=== PATIENT | female | born 1975 | race American Indian/Alaskan Native ===

== ENCOUNTER 2021-04-17 18:27 | Emergency (ER) | payer SELFPAY ==
[2021-04-17 19:40] LABS: Basophils # (Auto) 0.1 K/mm3 (0.0-0.1); Basophils % (Auto) 0.5 % (0.0-1.8); Hemoglobin 15.8 gm/dl (10.1-14.3); Lymphocytes # (Auto) 1.3 K/mm3 (1.2-5.4); Mean Corpuscular HGB Conc 34 % (30-34); Mean Corpuscular Volume 95 fl (79-97); Monocytes # (Auto) 0.6 K/mm3 (0.0-0.8); Platelet Count 297 K/mm3 (140-440); Red Blood Count 4.84 M/mm3 (3.65-5.03); Red Cell Distribution Width 13.2 % (13.2-15.2)
[2021-04-17 19:56] LABS: Bilirubin,Urine NEG (Negative); Blood,Urine MOD (Negative); Color,Urine Yellow (Yellow); Mucus,Urine 2+ /HPF; Urobilinogen,Urine < 2.0 mg/dL (<2.0)
[2021-04-17 19:58] LABS: Protein,Urine >500 mg/dL (Negative)
[2021-04-17 20:00] LABS: Alanine Aminotransferase 26 units/L (7-56); Blood Urea Nitrogen 14 mg/dL (7-17); Calcium 9.2 mg/dL (8.4-10.2); Hemolysis Index 16
[2021-04-17 20:06] LABS: BUN/Creatinine Ratio 23
--- NOTE | 2021-04-17 20:58 | Emergency Department Report ---
ED Abdominal Pain HPI - General Chief Complaint: Abdominal Pain Stated Complaint: VOMITING PUI?: No Time Seen by Provider: 04/17/21 20:50 Source: patient Mode of arrival: Ambulatory Limitations: No Limitations - History of Present Illness Initial Comments: Patient is a 46-year-old female who comes emergency room with complaints of abdominal pain. Patient states her abdominal pain been going on for 1 day. Patient states 2 days ago she drank a lot of alcohol. Patient states he cannot hold anything down. Patient states she had vomiting for 1 day as well. Patient states is a burning sensation in her epigastric region. Patient states it radiates to her left upper quadrant. Patient denies fever and chills. Patient denies blood in vomitus. Patient denies diarrhea. Patient also complains of a headache. Patient states she is out of her blood pressure medication for 6 months. Patient states her blood pressure was high at home. Patient states her BP was 210/135 at home. Patient states it was high in triage here. Patient denies blurry vision. Patient denies neck stiffness. Patient denies chest pain. Patient denies shortness of breath. Patient denies recent travel. Patient denies recent international travel. Patient denies exposure to the novel coronavirus. Patient denies sick contacts. Patient denies fever and chills. Patient denies cough. Patient denies diarrhea. Patient denies coming in contact with anybody with symptoms of the novel coronavirus. MD Complaint: abdominal pain -: Sudden Location: epigastric Radiation: LUQ Migration to: no migration Severity: severe Severity scale (0 -10): 10 Quality: burning Consistency: constant Improves With: rest Worsens With: vomiting, movement Associated Symptoms: nausea, vomiting. denies: diarrhea, fever, chills, constipation, dysuria, hematemesis, hematochezia, melena, hematuria, anorexia, syncope - Related Data LMP (females 10-50): this week Previous Rx's Medication Instructions Recorded Last Taken Type Amlodipine Besylate [Norvasc] 5 mg PO BID 15 Days #30 tablet 04/17/21 Unknown Rx Esomeprazole Magnesium [NexIUM] 40 mg PO QDAY 30 Days #30 04/17/21 Unknown Rx capsule. Ondansetron [Zofran Odt] 4 mg PO Q6HR PRN #15 tab.rapdis 04/17/21 Unknown Rx ALPRAZolam [Xanax TAB] 0.5 mg PO BID PRN #8 tab 04/18/21 Unknown Rx Allergies Allergy/AdvReac Type Severity Reaction Status Date / Time codeine Allergy Hives Verified 04/17/21 19:16 phenobarbital Allergy Rash Verified 04/17/21 19:16 phenytoin [From Dilantin] Allergy Itching Verified 04/17/21 19:17 ED Review of Systems ROS: Stated complaint: VOMITING Other details as noted in HPI Constitutional: denies: chills, fever Eyes: denies: eye pain, eye discharge, vision change ENT: denies: ear pain, throat pain Respiratory: denies: cough, shortness of breath, wheezing Cardiovascular: denies: chest pain, palpitations Endocrine: no symptoms reported Gastrointestinal: as per HPI, abdominal pain, nausea, vomiting. denies: diarrhea Genitourinary: denies: urgency, dysuria, discharge Musculoskeletal: denies: back pain, joint swelling, arthralgia Skin: denies: rash, lesions Neurological: denies: headache, weakness, paresthesias Psychiatric: denies: anxiety, depression Hematological/Lymphatic: denies: easy bleeding, easy bruising ED Past Medical Hx - Past Medical History Previous Medical History?: Yes Hx Hypertension: Yes Hx Seizures: Yes - Surgical History Past Surgical History?: Yes Additional Surgical History: Left lumpectomy - Family History Family history: no significant - Social History Smoking Status: Never Smoker Substance Use Type: Alcohol, Marijuana - Medications Home Medications: Home Medications Medication Instructions Recorded Confirmed Last Taken Type Amlodipine Besylate [Norvasc] 5 mg PO BID 15 Days #30 tablet 04/17/21 Unknown Rx Esomeprazole Magnesium [NexIUM] 40 mg PO QDAY 30 Days #30 04/17/21 Unknown Rx capsule. Ondansetron [Zofran Odt] 4 mg PO Q6HR PRN #15 tab.rapdis 04/17/21 Unknown Rx ALPRAZolam [Xanax TAB] 0.5 mg PO BID PRN #8 tab 04/18/21 Unknown Rx ED Physical Exam - General Limitations: No Limitations General appearance: alert, in no apparent distress - Head Head exam: Present: atraumatic, normocephalic - Eye Eye exam: Present: normal appearance - ENT ENT exam: Present: mucous membranes moist - Neck Neck exam: Present: normal inspection - Respiratory Respiratory exam: Present: normal lung sounds bilaterally. Absent: respiratory distress - Cardiovascular Cardiovascular Exam: Present: regular rate, normal rhythm. Absent: systolic murmur, diastolic murmur, rubs, gallop - GI/Abdominal GI/Abdominal exam: Present: soft, normal bowel sounds - Rectal Rectal exam: Present: deferred - Extremities Exam Extremities exam: Present: normal inspection - Back Exam Back exam: Present: normal inspection - Neurological Exam Neurological exam: Present: alert, oriented X3 - Psychiatric Psychiatric exam: Present: normal affect, normal mood - Skin Skin exam: Present: warm, dry, intact, normal color. Absent: rash ED Course Vital Signs 04/17/21 04/17/21 04/17/21 19:01 21:30 21:38 Temperature 98.0 F Pulse Rate 87 71 Respiratory 18 12 16 Rate Blood Pressure 204/145 189/117 O2 Sat by Pulse 99 100 Oximetry 04/17/21 04/17/21 04/17/21 21:46 22:00 22:16 Temperature Pulse Rate 83 73 84 Respiratory 14 9 L 13 Rate Blood Pressure 220/135 223/122 220/135 O2 Sat by Pulse 99 99 100 Oximetry 04/17/21 04/17/21 04/17/21 22:30 23:16 23:30 Temperature Pulse Rate 77 99 H 121 H Respiratory 17 27 H 25 H Rate Blood Pressure 199/126 191/121 170/93 O2 Sat by Pulse 100 100 100 Oximetry 04/17/21 04/17/21 04/18/21 23:34 23:46 00:00 Temperature Pulse Rate 118 H 121 H 117 H Respiratory 19 20 17 Rate Blood Pressure 170/93 165/91 159/103 O2 Sat by Pulse 100 99 100 Oximetry 04/18/21 04/18/21 04/18/21 00:16 01:00 01:16 Temperature Pulse Rate 108 H 91 H 88 Respiratory 25 H 21 15 Rate Blood Pressure 158/115 179/104 173/107 O2 Sat by Pulse 99 100 100 Oximetry - Reevaluation(s) Reevaluation #1: Patient has had fluids and Zofran. Patient has also had a GI cocktail. Patient states her pain has resolved. Patient states her headache is better. Patient blood pressure still low. Patient her blood pressure 190/126. Patient given 20 mg of hydralazine IV. 04/17/21 22:43 Reevaluation #2: Patient's blood pressure is improved. Patient states her headache is resolved. Patient states she is feeling much better. Patient dates her abdominal pain has resolved. Patient states she tolerated p.o. intake. Patient blood pressure is 170/93. I discussed all results and clinical findings with patient. I discussed plan of care with patient. Patient agrees with plan of care. Patient is stable for discharge. Patient will be discharged home. Patient given discharge instructions. Patient voiced understanding of discharge instructions. 04/17/21 23:36 Reevaluation #3: Patient was given the discharge instructions and the patient went into a panic attack. Patient's blood pressure is elevated. Patient was given Lopressor and Ativan. 04/18/21 00:02 Reevaluation #4: Patient's anxiety attack has resolved. Patient states she is feeling much better. Patient's blood pressure is better. Patient is now ready for discharge. Patient discharge will be activated and patient given discharge instructions. I discussed all results and clinical findings with patient. I discussed plan of care with patient. Patient agrees with plan of care. Patient is stable for discharge. Patient will be discharged home. Patient given discharge instructions. Patient voiced understanding of discharge instructions. 04/18/21 01:37 ED Medical Decision Making - Lab Data Result diagrams: 04/17/21 19:21 04/17/21 19:21 - Medical Decision Making Patient is a 46-year-old female that presents emergency room with complaints of epigastric abdominal pain, nausea, vomiting, headache and elevated blood pressure. Patient recently consumed a large amount of alcohol and woke up today with abdominal pain and a headache. Patient also began to have nausea and vomiting. Patient denies any blood in her vomitus. Patient had labs done which were essentially unremarkable but consistent with dehydration. Patient given IV fluids, antiemetic. Patient tolerated a GI cocktail. Patient tolerated p.o. intake. Patient symptoms completely resolved with GI cocktail. Patient's headache resolved after the patient's blood pressure was managed. Patient's been noncompliant with her blood pressure medication for 6 months. Patient will be given a refill of her Norvasc. Patient was given IV hydralazine in the ER. Patient responded well to treatment. Patient discharged from the hospital essentially asymptomatic. Patient will be discharged home with Norvasc, Nexium and Zofran. Patient does not require further emergency medical services. Patient not require any further imaging. Patient not require inpatient services. Patient stable for discharge. Patient discharged home. Just prior to the patient being discharged home from the ER, the patient went into a panic attack and patient's blood pressure shot up. Patient was given 0.5 mg of Ativan and 2.5 mg of Lopressor. Patient blood pressure improved. And the patient's panic attack subsided. Patient discharged home with as needed Xanax. Patient's was monitored back to baseline and the patient was discharged. Patient discharged his activity. Critical care time documented due to the multiple reassessments, prolonged time at the bedside, interpretation of diagnostics and labs. - Differential Diagnosis Gastroenteritis, gastritis, nausea, vomiting, Critical Care Time: Yes Critical care time in (mins) excluding proc time.: 35 Critical care attestation.: If time is entered above; I have spent that time in minutes in the direct care of this critically ill patient, excluding procedure time. Critical Care Time: 35 minutes ED Disposition Clinical Impression: Hypertensive emergency, Epigastric abdominal pain, Dehydration, Noncompliance, Anxiety Alcoholic gastritis Qualifiers: Chronicity: acute Gastritis bleeding: without bleeding Qualified Code(s): K29.20 - Alcoholic gastritis without bleeding Nausea & vomiting Qualifiers: Vomiting type: unspecified Vomiting Intractability: non-intractable Qualified Code(s): R11.2 - Nausea with vomiting, unspecified Hypertension Qualifiers: Hypertension type: primary hypertension Qualified Code(s): I10 - Essential (primary) hypertension Disposition: DC-01 TO HOME OR SELFCARE Is pt being admited?: No Does the pt Need Aspirin: No Condition: Stable Instructions: Gastritis, Adult, [id number], Dehydration, Adult, [id number], Abdominal Pain, Adult, [id number], Nausea and Vomiting, Adult, Managing Anxiety, Adult, Hypertension, Adult, Abdominal Pain (ED), Hypertension (ED) Additional Instructions: Patient to follow-up with primary care and screening unit registered nurse in 2 to 3 days. Patient to a low-salt diet. Patient to eat a brat diet. Patient did eat reflux diet. Patient to monitor blood pressure at home. Patient to keep a blood pressure log. Patient take her blood pressure log to all follow-up appointments. Patient to rest. Patient to increase water. Patient to avoid strenuous exercise or heavy lifting until cleared by primary care. Patient to take Tylenol as needed for pain. Patient to avoid NSAIDs, spicy food and alcohol. Patient to take meds as directed. Patient to return to the ER if condition worsens, changes or new symptoms arise. Prescriptions: Esomeprazole Magnesium [NexIUM] 40 mg PO QDAY 30 Days #30 capsule. Amlodipine Besylate [Norvasc] 5 mg PO BID 15 Days #30 tablet ALPRAZolam [Xanax TAB] 0.5 mg PO BID PRN #8 tab PRN Reason: Anxiety Ondansetron [Zofran Odt] 4 mg PO Q6HR PRN #15 tab.rapdis PRN Reason: Nausea And Vomiting Referrals: PRIMARY CARE, [Primary Care Provider] - 2-3 Days TEREZA EHRNANDEZ MD [Staff Physician] - 2-3 Days CLARA ROSE MD [Staff Physician] - 2-3 Days Forms: Work/School Release Form(ED) Time of Disposition: 01:39
[2021-04-17] MEDS ORDERED: ONDANSETRON 4 MG/2 ML INJ IV ONE (21:00)
[2021-04-17] MEDS ORDERED: SODIUM CHLORIDE 0.9% 1000 ML 1,000 ML IV ONE (21:00)
[2021-04-17] MEDS ORDERED: LIDOCAINE VISCOUS 2% 15 ML ORAL LIQD PO ONE (22:07)
[2021-04-17] MEDS ORDERED: ALUM-MAG HYDROXIDE-SIMETHICONE 200-200-20MG/5ML ORAL LIQD 30 ML PO ONE (22:07)
[2021-04-17] MEDS ORDERED: hydrALAZINE 20 MG/1 ML INJ IV ONE (22:43)
[2021-04-17] MEDS ORDERED: amLODIPine 5 MG TAB PO ONE (23:29)
[2021-04-18] MEDS ORDERED: LORazepam 2 MG/ML VIAL IV ONE (00:08)
[2021-04-18] MEDS ORDERED: METOPROLOL TARTRATE 5 MG/5 ML INJ IV ONE (00:32)
[2021-04-18 01:20] VITALS: BP 173/107
== END 2021-04-18 01:54 | disposition home or self-care (01) ==
LOC: ED 18:27
DX: K29.20 Alcoholic gastritis without bleeding (principal); R10.13 Epigastric pain; R11.2 Nausea with vomiting, unspecified; F41.9 Anxiety disorder, unspecified; E86.0 Dehydration; I16.1 Hypertensive emergency; I10 Essential (primary) hypertension; F12.90 Cannabis use, unspecified, uncomplicated; Z79.899 Other long term (current) drug therapy; Z88.8 Allergy status to other drugs, medicaments and biological substances; Z88.6 Allergy status to analgesic agent; Z86.69 Personal history of other diseases of the nervous system and sense organs; Z98.890 Other specified postprocedural states
CPT/HCPCS: 36415; 80053; 81001; 83690; 84703; 85025; 96361; 96374; 96375; 99283; J0360; J2060; J2405; J7030